=== PATIENT | female | born 1930 | race Native Hawaiian/Other Pacific Islander ===

== ENCOUNTER 2018-05-21 02:02 | Inpatient (IN) | payer OTHER ==
[~2018-05-21] VITALS: Ht 162.6 cm; Wt 65.9 kg
[2018-05-21] VITALS (36 sets, daily range): BP systolic 72–138; BP diastolic 31–76; TEMP 96–99; Ht 162.6 cm; Wt 65.9 kg
[~2018-05-21 02:02] MED LIST: ALBU0.0813 INH; ASCO500T18 PO; AZIT250T3 PO; BENZONATATE100 MG PO; CALCITRIOL0.25 MCG PO; CARV12.5 PO; CYAN10009 IM; DIVA500T2 PO; DONE5TAB PO; ESCI10TA PO; GRALISE300 MG PO; HALO5INJ3 IM; HYDROCOD; LEVO0.0529 PO; LINZESS290 MCG PO; LOSA50TA PO; MEDI-SELTZER PO; MEMA5TAB PO; MIRALAX3350 N1 PO; MULTTAB52 PO; NAMENDA5 MG PO; OMEPRAZOLE DR20 MG PO; ONDA4TAB3 PO; PAXIL10 MG PO; RISP1TAB PO; VITAMIN D2400 UNIT PO; [UNRECOGNIZED DRUG - OTHER] PO; [UNRECOGNIZED DRUG - OTHER] PO
[2018-05-21] MEDS ORDERED: RISP0.5T2 PO (20:20)
[2018-05-21] MEDS ORDERED: LORA2INJ21 INJ (20:22)
[2018-05-21] MEDS ORDERED: TYLENOL325 MG PO (20:23)
[2018-05-21] MEDS ORDERED: CALAMIN3 EX (20:24)
[2018-05-21] MEDS ORDERED: DIPH50IN INJ (20:25)
[2018-05-21] MEDS ORDERED: CYAN100010 IM (20:27)
[2018-05-21] MEDS ORDERED: ZINC220 MG PO (20:28)
[2018-05-21] MEDS ORDERED: MUCINEX600 MG PO (20:30)
[2018-05-21] MEDS ORDERED: LANOOIN26 TOP (20:32)
[2018-05-22] VITALS (41 sets, daily range): BP systolic 91–138; BP diastolic 34–80; TEMP 98.2–99.5
[2018-05-22 06:42] LABS: POTASSIUM 4.1 mmol/L (3.6-5.2)
[2018-05-22 08:02] LABS: PLATELET COUNT 130 K/uL (152-353)
[2018-05-23] VITALS (24 sets, daily range): BP systolic 90–156; BP diastolic 42–75; TEMP 97.1–99
[2018-05-23 09:40] LABS: PLATELET COUNT 193 K/uL (152-353)
[2018-05-24] VITALS (24 sets, daily range): BP systolic 108–162; BP diastolic 44–94; TEMP 97.4–99
[2018-05-25] VITALS (25 sets, daily range): BP systolic 100–167; BP diastolic 40–88; TEMP 98.2–99.6
[2018-05-26] VITALS (15 sets, daily range): BP systolic 95–151; BP diastolic 42–86; TEMP 98–98.7
[2018-05-26 06:31] LABS: PLATELET COUNT 219 K/uL (152-353)
[2018-05-26 06:41] LABS: POTASSIUM 3.3 mmol/L (3.6-5.2)
[2018-05-26] MEDS ORDERED: PEPCID20 MG PO (16:43)
[2018-05-26] MEDS ORDERED: LEVO0.0529 PO (16:47)
[2018-05-26] MEDS ORDERED: GABA300C2 PO (16:48)
[2018-05-26] MEDS ORDERED: DIVA250T PO (16:49)
[2018-05-26] MEDS ORDERED: RISP1TAB PO (16:49)
[2018-05-26] MEDS ORDERED: NAMENDA5 MG PO (16:51)
[2018-05-26] MEDS ORDERED: DONE5TAB PO (16:52)
[2018-05-26] MEDS ORDERED: HYDR5TAB9 PO (16:53)
== END 2018-05-26 15:30 | disposition other institution (70) | DRG 315 ==
LOC: ICU 02:02
PROVIDERS: Emergency Medicine; Internal Medicine; ADMIT Family Medicine
DX: I95.89 Other hypotension (principal); F02.81 Dementia in other diseases classified elsewhere, unspecified severity, with behavioral disturbance; R00.1 Bradycardia, unspecified; G30.8 Other Alzheimer's disease; E03.8 Other specified hypothyroidism; I10 Essential (primary) hypertension; R13.12 Dysphagia, oropharyngeal phase
CPT/HCPCS: 36415; 80053; 85027; 93005; 94760; J1265; J2060; J3486; J3490